=== PATIENT | female | born 1965 | race Caucasian/White ===

== ENCOUNTER 2018-11-27 11:24 | Emergency (ER) | payer BC, MEDICAID ==
[~2018-11-27] VITALS: Ht 160 cm; Wt 78.5 kg
--- NOTE | 2018-11-27 11:29 | NUR ---
PATIENT C/O BACK PAIN.
[2018-11-27] MEDS ORDERED: ESCI10TA PO (11:45)
[2018-11-27] MEDS ORDERED: ESTR0.623 PO (11:45)
[2018-11-27] MEDS ORDERED: QUET25TA PO (11:45)
[2018-11-27] MEDS ORDERED: CLON2TAB PO (11:45)
[2018-11-27] MEDS ORDERED: KETOROLAC TROMETHAMINE 30 MG INJ IM ONE (12:00)
[2018-11-27] MEDS ORDERED: KETOROLAC TROMETHAMINE 30 MG INJ ONE (12:01)
--- NOTE | 2018-11-27 12:40 | NUR ---
PATIENT STATES PAIN HAS DIMINISHED.
--- NOTE | 2018-11-27 12:51 | NUR ---
DC, RX AND FOLLOW UP INSTRUCTIONS GIVEN AND EXPLAINED TO PATIENT WHO STATES SHE UNDERSTANDS ALL INSTRUCTIONS.
[2018-11-27 12:52] VITALS: BP 122/71
== END 2018-11-27 12:53 | disposition home or self-care (01) ==
LOC: ER 11:24
DX: S39.012A Strain of muscle, fascia and tendon of lower back, initial encounter (principal); M54.17 Radiculopathy, lumbosacral region; Z79.899 Other long term (current) drug therapy; X58.XXXA Exposure to other specified factors, initial encounter; Y93.89 Activity, other specified; Y92.89 Other specified places as the place of occurrence of the external cause; Y99.8 Other external cause status
CPT/HCPCS: 72170; 96372; 99283; J1885; A4663

== ENCOUNTER 2021-11-28 09:24 | Emergency (ER) | payer BC, MEDICAID ==
[~2021-11-28] VITALS: Ht 160 cm; Wt 72.6 kg
[~2021-11-28 09:24] MED LIST: CLON2TAB PO; ESCI10TA PO; ESTR0.623 PO; QUET25TA PO
--- NOTE | 2021-11-28 09:54 | NUR ---
Dr. Guadalupe examining pt.
[2021-11-28 10:40] LABS: HEMATOCRIT 40.3 % (31.2-41.9); MEAN CORPUSCULAR HEMOGLOBIN 31.4 uug (24.7-32.8); MEAN CORPUSCULAR VOLUME 89.4 fL (75.5-95.3); PLATELET COUNT (AUTO) 252 K/uL (179-408)
[2021-11-28 10:42] LABS: NEUTROPHILS % (MANUAL) 0 % (42-75)
--- NOTE | 2021-11-28 11:46 | NUR ---
DCD instructions givento pt. who verbalized undertanding and left room ambulatory steady gait. No discomfort noted or verbalized.
== END 2021-11-28 11:47 | disposition home or self-care (01) ==
LOC: ER 09:27
DX: U07.1 COVID-19 (principal); K04.7 Periapical abscess without sinus; R03.0 Elevated blood-pressure reading, without diagnosis of hypertension; F32.A Depression, unspecified; Z79.899 Other long term (current) drug therapy
CPT/HCPCS: 36415; 85007; 85025; 99283; C9803; U0003; 70030-TC; A4663

== ENCOUNTER 2023-03-31 15:15 | Emergency (ER) | payer MEDICAID ==
[~2023-03-31] VITALS: Ht 160 cm; Wt 72.6 kg
[~2023-03-31 15:15] MED LIST changes: -CLON2TAB PO; -ESCI10TA PO; -QUET25TA PO
[2023-03-31 16:08] LABS: *BILIRUBIN,URIN NEGATIVE (NEGATIVE); *BLOOD, URINE NEGATIVE (NEGATIVE); *CLARITY,URINE CLEAR (CLEAR); *COLOR,URINE YELLOW (YELLOW); *KETONES,URINE NEGATIVE (NEGATIVE); *PROTEIN,URINE NEGATIVE (NEGATIVE); *UROBILINOGEN,URINE 0.2 E.U./dl (NORMAL); LEUKOCYTE ESTERASE ,URINE NEGATIVE (NEGATIVE); NITRITE, URINE NEGATIVE (NEGATIVE); PH,URINE 6.5 (5.0-8.0); UGLUCOSE NEGATIVE (NEGATIVE)
[2023-03-31] MEDS ORDERED: diphenhydrAMINE 50 MG/1 ML VIAL IM ONE (16:45)
[2023-03-31] MEDS ORDERED: HYDROMORPHONE 1 MG/1 ML DISP.SYRIN IM ONE (16:45)
[2023-03-31 16:58] LABS: BASOPHILS # (AUTO) 0.1 K/UL (0.0-0.2); EOSINOPHILS # (AUTO) 0.3 K/uL (0.0-0.7); EOSINOPHILS % (AUTO) 4.3 % (0.0-7.0); HEMATOCRIT 37.9 % (31.2-41.9); HEMOGLOBIN 13.1 g/dL (10.9-14.3); LYMPHOCYTES # (AUTO) 2.9 K/uL (0.8-4.8); LYMPHOCYTES % (AUTO) 39.1 % (20.5-51.5); MEAN CORPUSCULAR HEMOGLOBIN 31.5 uug (24.7-32.8); MEAN CORPUSCULAR HGB CONC 35 g/dL (32.3-35.6); MEAN CORPUSCULAR VOLUME 91.2 fL (75.5-95.3); MONOCYTES # (AUTO) 0.5 K/uL (0.1-1.30); MONOCYTES % (AUTO) 6.8 % (0.0-11.0); NEUTROPHILS # (AUTO) 3.7 K/uL (1.8-8.9); NEUTROPHILS % (AUTO) 48.8 % (38.5-71.5); PLATELET COUNT (AUTO) 252 K/uL (179-408); RED BLOOD CELL COUNT(AUTO) 4.16 MIL/uL (3.63-4.92); RED CELL DISTRIBUTION WIDTH 12.5 % (12.3-17.7); WHITE BLOOD COUNT (AUTO) 7.5 K/uL (3.8-11.8)
[2023-03-31] MEDS ORDERED: HYDROMORPHONE 1 MG/1 ML DISP.SYRIN ONE (16:59)
[2023-03-31] MEDS ORDERED: diphenhydrAMINE 50 MG/1 ML VIAL ONE (16:59)
[2023-03-31 17:07] LABS: DIFFERENTIAL COMMENT 1
[2023-03-31 17:19] LABS: CALCIUM 9.2 mg/dL (8.5-10.1); CREATININE 0.7 mg/dL (0.6-1.3); POTASSIUM 3.8 mmol/L (3.5-5.1)
[2023-03-31 17:25] LABS: ALBUMIN 3.7 g/dL (3.4-5.0); BILIRUBIN,DIRECT 0.1 mg/dL (0.0-0.2); BILIRUBIN,TOTAL 0.3 mg/dL (0.2-1.0); TOTAL PROTEIN, SERUM 7.4 g/dL (6.4-8.2)
[2023-03-31] MEDS ORDERED: [UNRECOGNIZED DRUG - CODE] PO (18:16)
[2023-03-31 19:11] VITALS: BP 133/71; TEMP 98.1; O2SAT 97
== END 2023-03-31 19:11 | disposition home or self-care (01) ==
LOC: ER 15:16
DX: R10.9 Unspecified abdominal pain (principal); M54.50 Low back pain, unspecified; Z79.899 Other long term (current) drug therapy
CPT/HCPCS: 36415; 83690; 85025; A4663; J1170; J1200